=== PATIENT | male | born 1950 | race Caucasian/White ===

== ENCOUNTER 2023-06-30 05:31 | Outpatient (CLI) | payer MEDICARE ==
[~2023-06-30] VITALS: Ht 177.4 cm; Wt 95.5 kg
[2023-06-30] MEDS ORDERED: MULT-974 PO (15:08)
== END 2023-06-30 16:19 | disposition home or self-care (01) ==
LOC: PREOP 05:31
PROVIDERS: ATTEND Specialist
DX: Z01.818 Encounter for other preprocedural examination (principal)

== ENCOUNTER 2023-07-02 06:08 | Day surgery (SDC) | payer MEDICARE ==
[~2023-07-02] VITALS: Ht 177.8 cm; Wt 95.5 kg
[~2023-07-02 06:08] MED LIST: MULT-974 PO
[2023-07-02] MEDS ORDERED: MOXIFLOXACIN OPHTH SOLN 5 MG/ML 0.3 ML SYRINGE OP ONE (06:15)
[2023-07-02] MEDS ORDERED: LIDOCAINE PF 1% 2 ML VIAL IR PRN (06:15)
[2023-07-02] MEDS ORDERED: POVIDONE IODINE OPHTH SOLN 5% 30 ML OP ONE (06:15)
[2023-07-02] MEDS ORDERED: TIMOLOL 0.5% (CATARACTS) 0.3 ML BTL OU PRN (06:15)
[2023-07-02] MEDS: TETRACAINE 0.5% OPHTH SOLN 4 ML BTL (SINGLE DOSE ONLY) OU PRN ×4 (06:29→06:55)
[2023-07-02 06:39] VITALS: BP 139/90
[2023-07-02] MEDS: PHENYLEPHRINE 10% OPHTH SOLN 5 ML BTL OU SCH ×3 (06:43→06:56)
[2023-07-02] MEDS: TROPICAMIDE 1% OPH SOLN (MYDRIACYL) 15 ML BTL OP SCH ×3 (06:44→06:56)
[2023-07-02] MEDS ORDERED: MIDAZOLAM INJ 2 MG/2 ML VIAL ONE (06:54)
--- NOTE | 2023-07-02 07:17 | Ophthalmologist Pre-Op Note ---
Pre-Operative Progress Note H&P Reviewed The H&P was reviewed, patient examined and no changes noted. Date H&P Reviewed: Jul 02, 2023 Time H&P Reviewed: 07:17 Pre-Op Dx Cataract, Right Eye CHEVY PEPPER MD Jul 02, 2023 07:17
--- NOTE | 2023-07-02 07:38 | Ophthalmology Operative Report ---
Cataract removal/placement IOL PREOPERATIVE DIAGNOSIS: Cataract Left Eye POSTOPERATIVE DIAGNOSIS: Cataract Left Eye PROCEDURE: Cataract removal and placement of posterior chamber implant, left eye SURGEON: Satya Pepper ANESTHESIA: Topical with sedation COMPLICATIONS: None ESTIMATED BLOOD LOSS: Minimal DESCRIPTION OF PROCEDURE: After proper informed consent was obtained, the patient, a 72 male, was taken to the Operating Room and the left eye was anesthetized with tetracaine. The left eye was then prepped and draped in the usual manner. A wire lid speculum was placed. A paracentesis was made at the left hand position. Preservative free lidocaine was injected into the anterior chamber followed by viscoelastic. A clear corneal incision was made in the temporal position. A capsulorrhexis was preformed and the central nuclear and cortical material were removed. The posterior capsule was polished and an Smith 18.5 AU00T0 was placed into the capsular bag. The residual viscoelastic was aspirated and balanced saline solution was injected into the anterior chamber. Moxifloxacin was injected into the anterior chamber. The wound was checked and found to be water tight. The patient tolerated the procedure well without complications. SATYA PEPPER MD Jul 02, 2023 07:38
[2023-07-02 07:42] VITALS: BP 132/86
--- NOTE | 2023-07-02 11:16 | Anesthesia-General Post-Op ---
MAC Patient Condition Mental Status/LOC: Same as Preop Cardiovascular: Satisfactory Nausea/Vomiting: Absent Respiratory: Satisfactory Pain: Controlled Complications: Absent Post Op Complications Complications None Follow Up Care/Instructions Patient Instructions None needed. Anesthesiology Discharge Order Discharge Order Patient is doing well, no complaints, stable vital signs, no apparent adverse anesthesia problems. No complications reported per nursing. DANY BOLANOS CRNA Jul 02, 2023 11:16
== END 2023-07-02 07:44 | disposition home or self-care (01) ==
LOC: SDC 06:08
PROVIDERS: ATTEND Specialist
DX: H25.9 Unspecified age-related cataract (principal)
CPT/HCPCS: 66984; V2632

== ENCOUNTER 2023-07-14 05:35 | Outpatient (CLI) | payer MEDICARE ==
[~2023-07-14] VITALS: Ht 178 cm; Wt 96.0 kg
== END 2023-07-15 09:08 | disposition home or self-care (01) ==
LOC: PREOP 05:35
PROVIDERS: ATTEND Specialist
DX: Z01.818 Encounter for other preprocedural examination (principal)

== ENCOUNTER 2023-07-23 06:37 | Day surgery (SDC) | payer MEDICARE ==
[~2023-07-23] VITALS: Ht 178 cm; Wt 96.0 kg
[2023-07-23] MEDS: TETRACAINE 0.5% OPHTH SOLN 4 ML BTL (SINGLE DOSE ONLY) OU PRN ×4 (06:44→07:07)
[2023-07-23] MEDS ORDERED: MOXIFLOXACIN OPHTH SOLN 5 MG/ML 0.3 ML SYRINGE OP ONE (06:45)
[2023-07-23] MEDS ORDERED: TIMOLOL 0.5% (CATARACTS) 0.3 ML BTL OU PRN (06:45)
[2023-07-23] MEDS ORDERED: POVIDONE IODINE OPHTH SOLN 5% 30 ML OP ONE (06:45)
[2023-07-23] MEDS ORDERED: LIDOCAINE PF 1% 2 ML VIAL IR PRN (06:45)
[2023-07-23 06:50] VITALS: BP 143/97
[2023-07-23] MEDS: TROPICAMIDE 1% OPH SOLN (MYDRIACYL) 15 ML BTL OP SCH ×3 (06:54→07:07)
[2023-07-23] MEDS: PHENYLEPHRINE 10% OPHTH SOLN 5 ML BTL OU SCH ×3 (06:55→07:07)
[2023-07-23] MEDS ORDERED: MIDAZOLAM INJ 2 MG/2 ML VIAL ONE (07:29)
--- NOTE | 2023-07-23 07:44 | Ophthalmologist Pre-Op Note ---
Pre-Operative Progress Note H&P Reviewed The H&P was reviewed, patient examined and no changes noted. Date H&P Reviewed: Jul 23, 2023 Time H&P Reviewed: 07:44 Pre-Op Dx Cataract, Left Eye CHEVY PEPPER MD Jul 23, 2023 07:44
--- NOTE | 2023-07-23 08:05 | Ophthalmology Operative Report ---
Cataract removal/placement IOL PREOPERATIVE DIAGNOSIS: Cataract Left Eye POSTOPERATIVE DIAGNOSIS: Cataract Left Eye PROCEDURE: Cataract removal and placement of posterior chamber implant, left eye SURGEON: Satya Pepper ANESTHESIA: Topical with sedation COMPLICATIONS: None ESTIMATED BLOOD LOSS: Minimal DESCRIPTION OF PROCEDURE: After proper informed consent was obtained, the patient, a 72 male, was taken to the Operating Room and the left eye was anesthetized with tetracaine. The left eye was then prepped and draped in the usual manner. A wire lid speculum was placed. A paracentesis was made at the left hand position. Preservative free lidocaine was injected into the anterior chamber followed by viscoelastic. A clear corneal incision was made in the temporal position. A capsulorrhexis was preformed and the central nuclear and cortical material were removed. The posterior capsule was polished and an Smith 18.0 AU00T0 was placed into the capsular bag. The residual viscoelastic was aspirated and balanced saline solution was injected into the anterior chamber. Moxifloxacin was injected into the anterior chamber. The wound was checked and found to be water tight. The patient tolerated the procedure well without complications. SATYA PEPPER MD Jul 23, 2023 08:05
[2023-07-23 08:14] VITALS: BP 128/86
--- NOTE | 2023-07-23 12:52 | Anesthesia-General Post-Op ---
MAC Patient Condition Mental Status/LOC: Same as Preop Cardiovascular: Satisfactory Nausea/Vomiting: Absent Respiratory: Satisfactory Pain: Controlled Complications: Absent Post Op Complications Complications None Follow Up Care/Instructions Patient Instructions None needed. Anesthesiology Discharge Order Discharge Order Patient is doing well, no complaints, stable vital signs, no apparent adverse anesthesia problems. No complications reported per nursing. LILLIAM SEBASTIAN CRNA Jul 23, 2023 12:52
== END 2023-07-23 08:15 | disposition home or self-care (01) ==
LOC: SDC 06:37
PROVIDERS: ATTEND Specialist
DX: H25.9 Unspecified age-related cataract (principal)
CPT/HCPCS: 66984; V2632